=== PATIENT | female | born 1995 | race Caucasian/White ===

== ENCOUNTER → 2017-09-26 | Outpatient (CLI) | payer BC ==
[~2017-09-26] MED LIST: SINCALIDE 5 MCG VIAL INJ ONE; WATER FOR INJ,STERILE 20 ML 20 ML ONE
--- NOTE | 2017-09-26 10:32 | RADIOLOGY IMAGING REPORT ---
FACILITY: [facility] PATIENT NAME: Corry Vogel : 1995 MR: [id number] V: [id number] EXAM DATE: ORDERING PHYSICIAN: [facility] TECHNOLOGIST: Location: [facility] Patient: Corry Vogel : 1995 Visit/Account:[id number] Date of Sevice: 09/26/2017 GALLBLADDER W KINEVAC HISTORY: Pain COMPARISON: None. FINDINGS: Initial images demonstrate normal morphologic appearance of the gallbladder without wall thickening, pericholecystic fluid, stone or sludge. Subsequently, 2.7 mL of CCK were given Preinjection volume is noted to be 18.98ml. Ejection fraction at 30 minutes is approximately 52%. Nausea reported 5/10 at the injection time. Zero out of 10 throughout the remainder the exam. Pain scale is consistently 7-8/10 from the 10 minute to 30 minute marker. IMPRESSION: 1. Normal gallbladder ejection fraction Report Dictated By: Francisco J Mathur MD at 09/26/2017 10:19 AM Report E-Signed By: Francisco J Mathur MD at 09/26/2017 10:28 AM WSN:[email or web address]
== END ==
LOC: US 08:16
PROVIDERS: ATTEND Physician Assistant
DX: R10.11 Right upper quadrant pain (principal); R19.8 Other specified symptoms and signs involving the digestive system and abdomen
CPT/HCPCS: 76705; J2805